=== PATIENT | female | born 1955 | race Caucasian/White ===

== ENCOUNTER 2016-08-22 08:36 | Outpatient (CLI) | payer OTHER ==
[2016-08-22 09:23] LABS: ALT (SGPT) 13 U/L (0-55); AST (SGOT) 18 U/L (5-34); Alkaline Phosphatase 82 U/L (40-150); Bilirubin, Direct 0.1 mg/dL (0.1-0.3); Bilirubin, Total 0.3 mg/dL (0.2-1.2); LDL Cholesterol, Calculated 95 mg/dL; Protein, Total 7.3 g/dL (5.8-8.1)
== END 2016-08-22 08:37 | disposition home or self-care (01) ==
LOC: NAV LAB 08:36
PROVIDERS: ATTEND Internal Medicine Cardiovascular Disease
DX: I48.0 Paroxysmal atrial fibrillation (principal); E78.00 Pure hypercholesterolemia, unspecified
CPT/HCPCS: 80061; 80076

== ENCOUNTER 2019-06-07 11:44 | Outpatient (CLI) | payer OTHER, MEDICARE ==
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
== END 2019-06-07 11:45 | disposition home or self-care (01) ==
LOC: NAV RAD 11:44
PROVIDERS: ATTEND Nurse Practitioner Adult Health
DX: M54.2 Cervicalgia (principal); M25.532 Pain in left wrist; V89.2XXA Person injured in unspecified motor-vehicle accident, traffic, initial encounter; M19.032 Primary osteoarthritis, left wrist; M47.812 Spondylosis without myelopathy or radiculopathy, cervical region
CPT/HCPCS: 72050

== ENCOUNTER 2022-12-07 14:13 | Emergency (ER) | payer MEDICARE, OTHER | END 2022-12-07 15:18 | disposition home or self-care (01) | LOC: NAV ERS 14:13 | DX: J20.9 Acute bronchitis, unspecified (principal); E78.00 Pure hypercholesterolemia, unspecified; I10 Essential (primary) hypertension | CPT/HCPCS: 71046 ==

== ENCOUNTER 2023-01-23 23:14 | Emergency (ER) | payer OTHER, MEDICARE | END 2023-01-24 00:25 | disposition home or self-care (01) | LOC: NAV ERS 23:14 | DX: S40.011A Contusion of right shoulder, initial encounter (principal); S90.31XA Contusion of right foot, initial encounter; D68.9 Coagulation defect, unspecified; E78.00 Pure hypercholesterolemia, unspecified; I10 Essential (primary) hypertension; W01.0XXA Fall on same level from slipping, tripping and stumbling without subsequent striking against object, initial encounter; Y92.091 Bathroom in other non-institutional residence as the place of occurrence of the external cause; Z87.891 Personal history of nicotine dependence | CPT/HCPCS: 99284 ==

== ENCOUNTER 2023-03-25 19:27 | Outpatient (CLI) | payer MEDICARE, OTHER | END 2023-03-25 19:28 | disposition home or self-care (01) | LOC: NAV RAD 19:27 | PROVIDERS: ATTEND Family Medicine | DX: S99.921A Unspecified injury of right foot, initial encounter (principal); M79.89 Other specified soft tissue disorders ==